=== PATIENT | male | born 1980 | race Caucasian/White ===

== ENCOUNTER 2017-06-26 13:37 | Emergency (ER) | payer OTHER, BC ==
[~2017-06-26] VITALS: Ht 182.9 cm; Wt 79.5 kg
[2017-06-26] MEDS ORDERED: FLUO20CA19 (13:44)
--- NOTE | 2017-06-26 14:13 | REP ---
RIGHT WRIST: Four views of the right wrist are performed. There appears to a nondisplaced fracture of the dorsal aspect of the triquetrum on the lateral view. No other acute fracture or dislocation is seen of the visualized osseous structures. Signed by Brian Sullivan MD 06/26/2017 02:27 P
[2017-06-26] MEDS ORDERED: NORCOTAB PO (14:42)
[2017-06-26 14:46] VITALS: BP 137/99
== END 2017-06-26 14:55 | disposition home or self-care (01) ==
LOC: M ED 13:37
DX: S62.114A Nondisplaced fracture of triquetrum [cuneiform] bone, right wrist, initial encounter for closed fracture (principal); W19.XXXA Unspecified fall, initial encounter; Y92.59 Other trade areas as the place of occurrence of the external cause; Y93.89 Activity, other specified; Y99.0 Civilian activity done for income or pay; F33.9 Major depressive disorder, recurrent, unspecified; Z88.0 Allergy status to penicillin

== ENCOUNTER 2017-11-10 08:33 | Outpatient (RCR) | payer OTHER | END 2017-12-02 | LOC: M OT 08:33 | DX: Z51.89 Encounter for other specified aftercare (principal); Z47.89 Encounter for other orthopedic aftercare ==

== ENCOUNTER 2018-04-07 18:20 | Emergency (ER) | payer SELFPAY, OTHER ==
[2018-04-07] MEDS: CLINDAMYCIN 600 MG in APPROPRIATE DILUENT 1 EA IV (19:58)
[2018-04-07] MEDS: NS 1,000 ML IV (19:58)
[2018-04-07] MEDS: MORPHINE 4 MG/ML 1ML VIAL/SYRINGE (J2270) IV (20:00)
[2018-04-07] MEDS: ADACEL/BOOSTRIX VACCINE (DIPHTH/PERTUSS/ACELL/TETANUS)0.5ML SYR (90715) IM (20:00)
== END 2018-04-07 21:58 | disposition short-term general hospital (02) ==
LOC: M ED 18:20
DX: S01.81XA Laceration without foreign body of other part of head, initial encounter (principal); S61.512A Laceration without foreign body of left wrist, initial encounter; W54.0XXA Bitten by dog, initial encounter; Y92.099 Unspecified place in other non-institutional residence as the place of occurrence of the external cause; Y93.9 Activity, unspecified; Y99.9 Unspecified external cause status; Z88.0 Allergy status to penicillin
CPT/HCPCS: J2270

== ENCOUNTER → 2024-08-19 | Outpatient (CLI) | payer BC ==
[~2024-08-19] MED LIST: FLUO-365; HYDR-3715 PO
[2024-08-19 11:34] LABS: BASO # 0.1 10^3/uL (0.0-0.2); BASO % 1.1 % (0.0-1.0); EOS # 0.2 10^3/uL (0.0-0.5); EOS % 4.6 % (0.0-3.0); HEMATOCRIT 44.8 % (42.0-52.0); HEMOGLOBIN 15.4 g/dl (13.5-17.5); LYMPH # 1.6 10^3/uL (1.5-5.0); LYMPH % 35.8 % (24.0-44.0); MEAN CORPUSCULAR HGB CONC 34.4 g/dl (32.0-36.5); MEAN CORPUSCULAR VOLUME 96.1 fl (80.0-96.0); MONO # 0.5 10^3/uL (0.0-0.8); MONO % 10.5 % (2.0-8.0); NEUTROPHILS # 2.2 10^3/uL (1.5-8.5); NEUTROPHILS % 47.8 % (36.0-66.0); PLATELET COUNT, AUTOMATED 209 10^3/uL (150-450); RED BLOOD COUNT 4.66 10^6/uL (4.30-6.10); WHITE BLOOD COUNT 4.6 10^3/uL (4.0-10.0)
[2024-08-19 12:09] LABS: ALKALINE PHOSPHATASE 73 U/L (40-129); ALT/SGPT 46 U/L (7.0-40); AST/SGOT 28 U/L (<34); BILIRUBIN,TOTAL 0.8 MG/DL (0.3-1.2); BLOOD UREA NITROGEN 13 MG/DL (9-23); CALCIUM LEVEL 9.4 MG/DL (8.5-10.1); CARBON DIOXIDE LEVEL 30 MMOL/L (20-31); CHLORIDE LEVEL 105 MMOL/L (98-107); CHOLESTEROL LEVEL 221 MG/DL (<200); CHOLESTEROL RISK RATIO 3.73 (<5); GLOMERULAR FILTRATION RATE > 60.0 (>60); GLUCOSE, FASTING 99 MG/DL (60-100); HDL CHOLESTEROL 59.2 MG/DL (>40); LDL CHOLESTEROL 144.4 MG/DL (<100); NON-HDL-C 161.8 MG/DL; POTASSIUM SERUM 4.6 MMOL/L (3.5-5.1); SODIUM LEVEL 138 MMOL/L (136-145); TOTAL PROTEIN 7.6 G/DL (5.7-8.2); TRIGLYCERIDES LEVEL 87 MG/DL (<150)
== END ==
LOC: M PLALAB 07:24
PROVIDERS: ATTEND Family Medicine
DX: Z00.00 Encounter for general adult medical examination without abnormal findings (principal)

== ENCOUNTER 2024-12-22 11:38 | Day surgery (SDC) | payer BC ==
[~2024-12-22] VITALS: Ht 182.9 cm; Wt 95.3 kg
[~2024-12-22 11:38] MED LIST changes: +BUPR15TASR PO
[2024-12-22] MEDS ORDERED: propofoL 500 MG/50 ML VIAL As Ordered ONE (13:20)
[2024-12-22 13:30] VITALS: TEMP 99.4
[2024-12-22 13:44] VITALS: BP 113/70; O2SAT 98
== END 2024-12-22 13:57 | disposition home or self-care (01) ==
LOC: M OPP 11:38
PROVIDERS: ATTEND Surgery
DX: Z12.11 Encounter for screening for malignant neoplasm of colon (principal); K63.5 Polyp of colon; Z80.0 Family history of malignant neoplasm of digestive organs; Z88.0 Allergy status to penicillin; Z79.899 Other long term (current) drug therapy